=== PATIENT | female | born 1945 | race American Indian/Alaskan Native ===

== ENCOUNTER 2017-03-07 18:39 | Emergency (ER) | payer MEDICARE, BC ==
[2017-03-07 18:39] VITALS: BMI 28.0
[2017-03-07 18:53] VITALS: BP 154/78; PULSE 90; RESP 18; TEMP 97.8; O2SAT 100
--- NOTE | 2017-03-07 20:22 | C.PDOC ---
History Of Present Illness 71 year old female who presents to the ER with a complaint of bilateral knee pain after patient tripped and fell while walking at approximately 15:00. Patient continued on with her day, however, on arrival home 3 hours later she began having increased pain which prompted visit. Denies weakness/numbness of the left lower extremity, head injury, LOC, or feeling dizzy prior to fall. - HPI Time Seen by Provider: 03/07/17 19:11 Chief Complaint (Nursing): Trauma History Per: Patient History/Exam Limitations: no limitations Onset/Duration Of Symptoms: Hrs Injury Occurred (Timing): Today @ (15:00) Location Of Injury: Right: Knee, Left: Knee Recent travel outside of the [place]: No - Fall Fall:Prior To Injury: Tripped Past Medical History Reviewed: Historical Data, Nursing Documentation, Vital Signs Vital Signs: Last Vital Signs Temp 97.8 F 03/07/17 18:50 Pulse 90 03/07/17 18:50 Resp 18 03/07/17 18:50 BP 154/78 H 03/07/17 18:50 Pulse Ox 100 03/07/17 20:33 - Medical History PMH: HTN Surgical History: No Surg Hx Family History: States: Unknown Family Hx - Social History Hx Alcohol Use: No Hx Substance Use: No Review Of Systems Musculoskeletal: Positive for: Leg Pain Neurological: Negative for: Weakness, Numbness, Dizziness, Other (LOC) Physical Exam - Physical Exam Appears: Non-toxic, No Acute Distress Skin: Warm, Dry Head: Atraumatic, Normacephalic Eye(s): bilateral: Normal Inspection, EOMI Extremity: Normal ROM (Knees with pain. Right elbow without pain.), Tenderness ( On palpation to anterior knees), Capillary Refill (<2 seconds), No Deformity, Swelling (To bilateral knees, left greater than left), Other (Abrasion to right proximal forearm, lateral right elbow, and bilateral anterior knees) Extremity: Bilateral: Normal Color And Temperature Pulses: Left Dorsalis Pedis: Normal, Right Dorsalis Pedis: Normal Neurological/Psych: Oriented x3, Normal Speech, Normal Cognition, Normal Motor, Normal Sensation Gait: Steady ED Course And Treatment O2 Sat by Pulse Oximetry: 100 (Room air) Pulse Ox Interpretation: Normal Progress Note: Bilateral knee x-ray ordered. Tetanus vaccination and motrin administered. Disposition - Disposition Referrals: PMD, PMD [Other] Disposition: HOME/ ROUTINE Disposition Time: 20:00 Condition: STABLE Additional Instructions: Tylenol or advil for pain Apply ICE to area Return to ER if worse Instructions: Contusion in Adults (ED), Abrasion (ED) Forms: [employer] (Ukrainian) - Clinical Impression Clinical Impression: Multiple abrasions, Contusion, knee - Scribe Statement The provider has reviewed the documentation as recorded by the Scribbenito Moreno All medical record entries made by the Baljinderibbenito were at my direction and personally dictated by me. I have reviewed the chart and agree that the record accurately reflects my personal performance of the history, physical exam, medical decision making, and the department course for this patient. I have also personally directed, reviewed, and agree with the discharge instructions and disposition.
[2017-03-07] MEDS ORDERED: Bacitracin 500 Units/gm Oint Foilpak UD ONE (20:27)
--- NOTE | 2017-03-08 08:52 | RAD ---
PROCEDURE: Bilateral Knee Radiographs. HISTORY: pain, fall, abrasions, b/l knees COMPARISON: None. FINDINGS: BONES: Right Knee: Osteophytosis. No fracture. Left Knee: Osteophytosis. No fracture. JOINTS: Right Knee: Tricompartmental osteoarthrosis medial femoral tibial and patellofemoral joints most notably affected Left knee: Same as the right SOFT TISSUES: Right Knee: Prepatellar soft tissue swelling Left Knee: Same as the right JOINT EFFUSION: Right Knee: None. Left Knee: Present OTHER FINDINGS: Bilateral quadriceps insertional enthesophytes IMPRESSION: No fractures. No dislocations Bilateral osteoarthrosis Left joint effusion
== END 2017-03-07 20:45 | disposition home or self-care (01) ==
LOC: C.ER 18:39
DX: S80.00XA Contusion of unspecified knee, initial encounter (principal); W01.0XXA Fall on same level from slipping, tripping and stumbling without subsequent striking against object, initial encounter; Y93.01 Activity, walking, marching and hiking; I10 Essential (primary) hypertension; Z23 Encounter for immunization

== ENCOUNTER 2017-03-26 13:54 | Emergency (ER) | payer MEDICARE, BC ==
[2017-03-26 13:54] VITALS: BMI 28.0
[2017-03-26 14:20] VITALS: BP 157/87; PULSE 87; RESP 16; TEMP 98.2; O2SAT 98
[2017-03-26] MEDS ORDERED: Naproxen 550 mg Tab PO STA (14:32)
[2017-03-26] MEDS ORDERED: Naproxen 550 mg Tab PO ONE (14:36)
--- NOTE | 2017-03-26 14:41 | C.PDOC ---
History Of Present Illness 71 y/o female c/o bilateral knee pain that has been persistent s/p fall on March 07. Patient was seen here and had negative results on her XRAYs. Patient followed up with her PMD and was started on therapy, but reports that the pain persists. Patient denies new trauma, weakness, or numbness. Patient reports healing scabs. No fever, chills, or drainage. Time Seen by Provider: 03/26/17 14:21 Chief Complaint (Nursing): Lower Extremity Problem/Injury History Per: Patient History/Exam Limitations: no limitations Onset/Duration Of Symptoms: Days Current Symptoms Are (Timing): Still Present Severity: Mild Recent travel outside of the [place]: No Additional History Per: Patient Past Medical History Reviewed: Historical Data, Nursing Documentation, Vital Signs Vital Signs: Last Vital Signs Temp 98.2 F 03/26/17 14:15 Pulse 87 03/26/17 14:15 Resp 16 03/26/17 14:15 BP 157/87 H 03/26/17 14:15 Pulse Ox 98 03/26/17 15:18 - Medical History PMH: HTN Family History: States: Unknown Family Hx - Social History Hx Alcohol Use: No Hx Substance Use: No Review Of Systems Except As Marked, All Systems Reviewed And Found Negative. Constitutional: Negative for: Fever, Chills, Other (New trauma) Musculoskeletal: Positive for: Leg Pain (Bilateral knee pain) Skin: Positive for: Other (Healing scabs, No drainage) Neurological: Negative for: Weakness, Numbness Physical Exam - Physical Exam Appears: Non-toxic, No Acute Distress (Reading newspaper on the stretcher, comfortable.) Skin: Warm, Dry, Other (Healing scars to the right elbow and bilateral knees.) Head: Atraumatic, Normacephalic Extremity: Normal ROM (x4), No Tenderness, Capillary Refill (<2secs), No Deformity, No Swelling Pulses: Left Dorsalis Pedis: Normal, Right Dorsalis Pedis: Normal Neurological/Psych: Oriented x3, Normal Motor, Normal Sensation, Other (No focal deficit) Gait: Steady ED Course And Treatment O2 Sat by Pulse Oximetry: 98 (RA) Pulse Ox Interpretation: Normal Medical Decision Making Medical Decision Making: Plans: * XRAY bilateral knees * Anaprox On reassessment, patient is resting comfortably, with improvement of bilateral leg pain. Patient remains afebrile, with no bony tenderness, extremity numbness or weakness. Patient is ambulatory in the emergency department with no signs of discomfort. Patient was advised to follow up with physician/clinic in 1-2 days. Disposition - Disposition Referrals: [facility] [Outside] [facility] [Outside] [facility] [Outside] [facility] [Outside] Disposition: HOME/ ROUTINE Disposition Time: 15:17 Condition: STABLE Additional Instructions: please follow up with your doctor. return to er with worsening symptoms or concerns. please see specialists Instructions: Knee Pain (ED) Forms: [employer] (Vietnamese) - Clinical Impression Clinical Impression: Knee pain, Healing wound - Scribe Statement The provider has reviewed the documentation as recorded by the Scribbenito spicer All medical record entries made by the Bajlinderibbenito were at my direction and personally dictated by me. I have reviewed the chart and agree that the record accurately reflects my personal performance of the history, physical exam, medical decision making, and the department course for this patient. I have also personally directed, reviewed, and agree with the discharge instructions and disposition.
[2017-03-26] MEDS ORDERED: Bacitracin 500 Units/gm Oint Foilpak UD TOP ONE (15:04)
--- NOTE | 2017-03-26 15:04 | RAD ---
PROCEDURE: Bilateral Knee Radiographs. HISTORY: knee pain COMPARISON: 03/07/2017. FINDINGS: BONES: There is mild periarticular bone demineralization. There is no acute fracture or bone destruction. Bone alignment is normal. JOINTS: There is mild tricompartmental degenerative osteoarthrosis with reduced joint spaces, marginal spurring and tibial spiking, worse in the medial compartments. SOFT TISSUES: Right Knee: Normal. Left Knee: Normal. JOINT EFFUSION: There are bilateral small suprapatellar joint effusions. OTHER FINDINGS: None. IMPRESSION: Mild tricompartmental degenerative osteoarthrosis, worse in the medial compartments. Small suprapatellar joint effusions.
[2017-03-26] MEDS ORDERED: Bacitracin 500 Units/gm Oint Foilpak UD ONE (15:08)
== END 2017-03-26 15:18 | disposition home or self-care (01) ==
LOC: C.ER 13:54
DX: M25.562 Pain in left knee (principal); M25.561 Pain in right knee